=== PATIENT | female | born 1980 | race Caucasian/White ===

== ENCOUNTER 2021-04-23 00:55 | Emergency (ER) | payer OTHER ==
[~2021-04-23 00:55] MED LIST: BENTYL 20MG TAB20 MG PO; COLACE 100MG C100 MG PO; IBUPROFEN600 MG PO; KEFLEX CAP 500500 MG PO; MACROBID 100 M100 MG PO; PRENATAL VITAM1 EAC8 PO; REGLAN10 MG PO
[2021-04-23] MEDS ORDERED: PERCOCET 5-3251 EACH PO (01:56)
== END 2021-04-23 02:00 | disposition home or self-care (01) ==
LOC: ER1 00:55
DX: K08.89 Other specified disorders of teeth and supporting structures (principal)
CPT/HCPCS: 96372; 99282; J1885